=== PATIENT | female | born 1975 | race Caucasian/White ===

== ENCOUNTER → 2017-03-17 | Outpatient (CLI) | payer BC ==
--- NOTE | 2017-03-19 10:50 | MM ---
Reason for exam: screening (asymptomatic). Last mammogram was performed 2 years and 1 month ago. History: Family history of breast cancer in mother at age 53. Took hormonal contraceptives for 6 years beginning at age 24. Physical Findings: A clinical breast exam by your physician is recommended on an annual basis and results should be correlated with mammographic findings. MG Screening Mammo w CAD Bilateral CC and MLO view(s) were taken. Prior study comparison: February 01, 2015, bilateral MG diagnostic mammo w CAD [facility]. January 23, 2011, [facility] DIGITAL LEFT BREAST MAMMOGRAM w/CAD. There are scattered fibroglandular densities. No significant changes when compared with prior studies. ASSESSMENT: Benign, BI-RAD 2 RECOMMENDATION: Routine screening mammogram of both breasts in 1 year.
== END ==
LOC: RADMAMWWP 11:20
PROVIDERS: ATTEND Obstetrics & Gynecology
DX: Z12.31 Encounter for screening mammogram for malignant neoplasm of breast (principal); Z80.3 Family history of malignant neoplasm of breast

== ENCOUNTER → 2019-03-16 | Outpatient (CLI) | payer BC ==
--- NOTE | 2019-03-17 12:49 | MM ---
Reason for exam: screening (asymptomatic). Last mammogram was performed 2 years ago. History: Family history of breast cancer in mother at age 53. Took hormonal contraceptives for 6 years beginning at age 24. Physical Findings: A clinical breast exam by your physician is recommended on an annual basis and results should be correlated with mammographic findings. MG 3D Screening Mammo W/Cad Bilateral CC, MLO, and XCCL view(s) were taken. Prior study comparison: March 17, 2017, bilateral MG screening mammo w CAD. February 01, 2015, bilateral MG diagnostic mammo w CAD [facility]. The breast tissue is heterogeneously dense. This may lower the sensitivity of mammography. There is no discrete abnormality. ASSESSMENT: Negative, BI-RAD 1 RECOMMENDATION: Routine screening mammogram of both breasts in 1 year.
== END | disposition home or self-care (01) ==
LOC: RADMAMWWP 16:35
PROVIDERS: ATTEND Obstetrics & Gynecology
DX: Z12.31 Encounter for screening mammogram for malignant neoplasm of breast (principal)
CPT/HCPCS: 77063; 77067

== ENCOUNTER → 2020-06-04 | Outpatient (CLI) | payer BC ==
--- NOTE | 2020-06-05 08:42 | MM ---
Reason for exam: screening (asymptomatic). Last mammogram was performed 1 year and 3 months ago. History: Family history of breast cancer in mother at age 53. Took hormonal contraceptives for 6 years beginning at age 24. Physical Findings: A clinical breast exam by your physician is recommended on an annual basis and results should be correlated with mammographic findings. MG 3D Screening Mammo W/Cad Bilateral CC and MLO view(s) were taken. Prior study comparison: March 16, 2019, bilateral MG 3d screening mammo w/cad. March 17, 2017, bilateral MG screening mammo w CAD. There are scattered fibroglandular densities. There is no discrete abnormality. ASSESSMENT: Negative, BI-RAD 1 RECOMMENDATION: Routine screening mammogram of both breasts in 1 year.
== END | disposition home or self-care (01) ==
LOC: RADMAMWWP 07:22
PROVIDERS: ATTEND Obstetrics & Gynecology
DX: Z12.31 Encounter for screening mammogram for malignant neoplasm of breast (principal)
CPT/HCPCS: 77063; 77067

== ENCOUNTER → 2021-12-22 | Outpatient (CLI) | payer BC ==
--- NOTE | 2021-12-23 10:10 | MM ---
Reason for exam: screening (asymptomatic). Last mammogram was performed 1 year and 7 months ago. History: Family history of breast cancer in mother at age 53. Took hormonal contraceptives for 6 years beginning at age 24. Physical Findings: A clinical breast exam by your physician is recommended on an annual basis and results should be correlated with mammographic findings. MG 3D Screening Mammo W/Cad Bilateral CC and MLO view(s) were taken. Prior study comparison: June 04, 2020, bilateral MG 3d screening mammo w/cad. March 16, 2019, bilateral MG 3d screening mammo w/cad. The breast tissue is heterogeneously dense. This may lower the sensitivity of mammography. There are benign appearing round calcifications bilaterally. There is no discrete abnormality. ASSESSMENT: Benign, BI-RAD 2 RECOMMENDATION: Routine screening mammogram of both breasts in 1 year.
== END | disposition home or self-care (01) ==
LOC: RADMAMWWP 09:55
PROVIDERS: ATTEND Obstetrics & Gynecology
DX: Z12.31 Encounter for screening mammogram for malignant neoplasm of breast (principal); Z80.3 Family history of malignant neoplasm of breast
CPT/HCPCS: 77063; 77067

== ENCOUNTER → 2022-08-12 | Outpatient (CLI) | payer BC ==
--- NOTE | 2022-08-12 08:12 | US ---
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 Hyperbilirubinemia TECHNIQUE: Multiple sonographic images of the right upper quadrant are obtained. FINDINGS: EXAM MEASUREMENTS: Liver Length: 13.3 cm Gallbladder Wall: 0.2 cm CBD: 0.8 cm Right Kidney: 11.1 x 3.8 x 5.2 cm Pancreas: wnl Visualized pancreas appears within normal limits. Visualized liver shows no worrisome solid or cystic mass. Gallbladder shows no mobile shadowing gallstones. Common bile duct mild to minimally dilated a t 8 mm. No intrahepatic biliary dilatation. No right-sided hydronephrosis. IMPRESSION: Mild extrahepatic biliary dilatation may warrant further workup with MRI/MRCP to better e valuate and characterize.
== END | disposition home or self-care (01) ==
LOC: RADUSWWP 07:05
PROVIDERS: ATTEND Internal Medicine
DX: E80.6 Other disorders of bilirubin metabolism (principal)
CPT/HCPCS: 76705

== ENCOUNTER → 2022-09-25 | Outpatient (CLI) | payer BC ==
--- NOTE | 2022-09-25 09:48 | MR ---
MR MRCP INDICATION: Patient age:Female; 46 years old; Reason for study: K83.8 SPECIFIED DISEASES OF BILIARY TRACT; COMPARISON: Ultrasound liver 08/12/2022 TECHNIQUE: Multi planar, T2-weighted imaging with and without fat saturation and chemical shift imag ing was performed of the abdomen. Then, heavily T2 weighted imaging (half-Fourier acquisition single- shot turbo spin-echo) was utilized in order to study the biliary system. Maximum intensity projectio n images were reconstructed from the original data of the biliary tree. No Gadolinium given. FINDINGS: MRCP: The intrahepatic ducts have a normal appearance. The common bile duct at the level of the rivera creatic head measures 10 mm in size. The common hepatic duct measures 11 mm in size. The pancreatic duct is normal. The gallbladder appears unremarkable. Abdomen: The adrenal glands, and kidneys, have a normal noncontrast appearance. 6 mm cystic high T2 signal focus in the pancreatic head which appears to communicate with the pancrea tic duct and be part of the duct on MIP MRCP imaging. Mild signal dropout on in phase imaging of both the liver and spleen. Small fat-containing umbilical hernia. IMPRESSION: 1. No evidence to suggest ductal stricture, choledocholithiasis. 2. Ductal dilation of the common hepatic and common bile duct without evidence of filling defect. Sm ooth tapering of the common hepatic duct towards the papilla. 3. Cystic focus within the pancreatic head measuring up to 5 mm is favored represent somewhat tortuo us main pancreatic duct. 4. Iron deposition within the liver and spleen suggested.
== END | disposition home or self-care (01) ==
LOC: RADMRIMAIN 07:44
PROVIDERS: ATTEND Internal Medicine
DX: K86.2 Cyst of pancreas (principal); K83.8 Other specified diseases of biliary tract
CPT/HCPCS: 74181

== ENCOUNTER → 2023-02-10 | Outpatient (CLI) | payer BC ==
--- NOTE | 2023-02-11 09:00 | MM ---
Reason for Exam: Screening (asymptomatic). Last mammogram was performed 1 year(s) and 1 month(s) ago. Patient History: Menarche at age 13. First Full-Term at age 23. Hormonal Contraceptives, starting at age 24 for 6 years. Mother had breast cancer, age 53. Last menstrual period: 01/22/2023 Risk Values: Kinza 5 year model risk: 1.7%. NCI Lifetime model risk: 17.1%. Prior Study Comparison: 03/16/2019 Bilateral Screening Mammogram, [facility]. 06/04/2020 Bilateral Screening Mammogram, [facility]. 12/22/2021 Bilateral Screening Mammogram, [facility]. Tissue Density: The breast tissue is heterogeneously dense. This may lower the sensitivity of mammography. Findings: Analyzed By CAD. There is no suspicious group of microcalcifications or new suspicious mass in either breast. Overall Assessment: Negative, BI-RAD 1 Management: Screening Mammogram of both breasts in 1 year. A clinical breast exam by your physician is recommended on an annual basis and results should be correlated with mammographic findings. [facility] will attempt to contact patient to return for supplemental views and ultrasound if indicated. Electronically signed and approved by: Franko Black DO
== END | disposition home or self-care (01) ==
LOC: RADMAMWWP 07:28
PROVIDERS: ATTEND Obstetrics & Gynecology
DX: Z12.31 Encounter for screening mammogram for malignant neoplasm of breast (principal); Z80.3 Family history of malignant neoplasm of breast
CPT/HCPCS: 77063; 77067

== ENCOUNTER → 2024-04-07 | Outpatient (CLI) | payer BC ==
--- NOTE | 2024-04-07 19:13 | MM ---
Reason for Exam: Screening (asymptomatic). Last mammogram was performed 1 year(s) and 2 month(s) ago. Patient History: Menarche at age 13. First Full-Term at age 23. Premenopausal. Hormonal Contraceptives, starting at age 24 for 6 years. Mother had breast cancer, age 53. Risk Values: Kinza 5 year model risk: 1.7%. NCI Lifetime model risk: 16.9%. Prior Study Comparison: 06/04/2020 Bilateral Screening Mammogram, [facility]. 12/22/2021 Bilateral Screening Mammogram, [facility]. 02/10/2023 Bilateral MG 3D screening mammo w/cad, [facility]. Tissue Density: The breasts are heterogeneously dense, which may obscure small masses. Findings: Analyzed By CAD. The pattern is symmetrical. No suspicious groups of microcalcifications, spiculated or lobular masses, architectural distortion or other secondary signs of malignancy are mammographically apparent. Overall Assessment: Negative, BI-RAD 1 Management: Screening Mammogram of both breasts in 1 year. A negative mammogram report should not preclude additional follow up of suspicious palpable abnormalities. Patient should continue monthly self breast exam. A clinical breast exam by your physician is recommended on an annual basis and results should be correlated with mammographic findings. Note on Kinza scores and lifetime risk: 1. A Kinza score greater than 3% is considered moderate risk. If this is the case, consider specialist referral to assess eligibility for a risk reducing agent. 2. If overall lifetime risk for the development of breast cancer is 20% or higher, the patient may qualify for future screening with alternating mammogram and breast MRI. Electronically signed and approved by: Jose M Botello D.O. Radiologis
== END | disposition home or self-care (01) ==
LOC: RADMAMWWP 07:29
PROVIDERS: ATTEND Internal Medicine
DX: Z12.31 Encounter for screening mammogram for malignant neoplasm of breast (principal); Z80.3 Family history of malignant neoplasm of breast
CPT/HCPCS: 77063; 77067

== ENCOUNTER → 2024-09-12 | Outpatient (CLI) | payer BC ==
--- NOTE | 2024-09-14 08:55 | MR ---
EXAMINATION TYPE: MR pancreas wo/w con DATE OF EXAM: 09/12/2024 7:13 PM COMPARISON: MRI 10/04/2022 CLINICAL INDICATION: Female, 48 years old with history of K86.2 PANCREATIC CYST; [facility], Evaluate for pa ncreatic cyst TECHNIQUE: Multiplanar multi-sequence imaging was performed without contrast. Post contrast imaging was performed. Post IV contrast subtraction images were also submitted for review. IV Contrast: 9 cc Gadavist FINDINGS: LOWER CHEST: No gross irregularity. ABDOMEN Liver: No evidence for hepatic steatosis or cirrhosis. Gallbladder and Bile ducts: No evidence for biliary stricture or evidence of choledocholithiasis. The gallbladder is within normal limits.. Common bile duct is again prominent in size measuring up to 11 mm given differences in technique. Pancreas: No ductal dilation. No evidence for solid mass. Previous cystic structure may have been a t ortuous ducts. And may have had a us more focal appearance on prior due to slice selection. No cystic masses definitively visualized. Spleen: Normal for size. Adrenal glands: Unremarkable. Kidneys: No evidence for obstructive uropathy. No suspicious renal masses. Stomach and Bowel: No evidence for bowel wall thickening or evidence for obstruction. Retroperitoneum/Peritoneum: No evidence of pneumoperitoneum or free fluid. Vasculature: No aortic aneurysm. Musculoskeletal: The osseous structures appear intact. Lymph Nodes: No gross evidence for lymphadenopathy. Abdominal wall: Unremarkable. Left ovarian dominant follicle measuring up to 2.2 cm. IMPRESSION: 1. Pancreatic head lesion seen on prior may be a tortuous main pancreatic duct. No suspicious cystic structures or solid masses visualized. No ductal dilation. 2. Slightly dilated, and bile duct without evidence of choledocholithiasis. 3. Left ovarian dominant follicle measuring up to 2.2 cm. [facility], , 09/14/2024 8:53 AM
== END | disposition home or self-care (01) ==
LOC: RADMRIMAIN 18:04
PROVIDERS: ATTEND Internal Medicine
DX: K86.2 Cyst of pancreas (principal)
CPT/HCPCS: 74183